=== PATIENT | female | born 1945 | race Caucasian/White ===

== ENCOUNTER → 2017-03-05 | Outpatient (CLI) | payer MEDICARE ==
[~2017-03-05] MED LIST: OMNIPAQUE 350 MG/ML, 150 ML BOTTLE ONE
== END | disposition home or self-care (01) ==
LOC: CFH 09:24
PROVIDERS: ATTEND Internal Medicine Hematology & Oncology
DX: C82.31 Follicular lymphoma grade IIIa, lymph nodes of head, face, and neck (principal); M89.9 Disorder of bone, unspecified; K42.9 Umbilical hernia without obstruction or gangrene; I70.0 Atherosclerosis of aorta; M53.3 Sacrococcygeal disorders, not elsewhere classified; M85.88 Other specified disorders of bone density and structure, other site; M47.897 Other spondylosis, lumbosacral region
CPT/HCPCS: 70491; 71260; 74177; Q9967

== ENCOUNTER → 2017-04-03 | Outpatient (CLI) | payer MEDICARE | END | disposition home or self-care (01) | LOC: PETCFH 11:11 | PROVIDERS: ATTEND Internal Medicine Hematology & Oncology | DX: M89.8X0 Other specified disorders of bone, multiple sites (principal); C82.31 Follicular lymphoma grade IIIa, lymph nodes of head, face, and neck; M51.37 Other intervertebral disc degeneration, lumbosacral region; M41.85 Other forms of scoliosis, thoracolumbar region | CPT/HCPCS: 78306; A9503 ==